=== PATIENT | male | born 1990 | race Caucasian/White ===

== ENCOUNTER 2018-01-04 18:35 | Emergency (ER) | payer OTHER ==
[~2018-01-04] VITALS: Ht 195.6 cm; Wt 126.1 kg
[~2018-01-04 18:35] MED LIST: HYDROCODONE-AP1 EAC6 PO; IBUPROFEN 800800 M1 PO
[2018-01-04] MEDS ORDERED: IBUPROFEN 600600 M1 PO (18:58)
[2018-01-04] MEDS ORDERED: AMOXICILLIN 50500 MG PO ×2 (19:31→19:33)
[2018-01-04 19:45] VITALS: BP 108/67
== END 2018-01-04 19:46 | disposition home or self-care (01) ==
LOC: M.ERS 18:35
DX: J02.0 Streptococcal pharyngitis (principal); F17.210 Nicotine dependence, cigarettes, uncomplicated; Z88.6 Allergy status to analgesic agent